=== PATIENT | female | born 1985 | race African-American/Black ===

== ENCOUNTER 2018-02-05 15:10 | Emergency (ER) | payer OTHER ==
[~2018-02-05] VITALS: Ht 165.1 cm; Wt 57.1 kg
[2018-02-05 15:26] VITALS: Ht 165.1 cm; Wt 57.1 kg
[2018-02-05 16:04] LABS: BASOPHIL % 0.7 % (0-2); PLATELET COUNT 250 x10^3mcL (130-400); RED CELL DISTRIBUTION WIDTH 13.6 % (11.5-14.5)
[2018-02-05 16:10] LABS: CALCIUM 9.1 mg/dL (8.5-10.1); CARBON DIOXIDE 28.3 mmol/L (21-32); CHLORIDE SERUM 102 mmol/L (98-107); CREATININE SERUM 0.8 mg/dL (0.6-1.0); GFR1 > 60 mL/min; GLUCOSE SERUM 97 mg/dL (74-106); POTASSIUM SERUM 3.7 mmol/L (3.5-5.1); SODIUM SERUM 137 mmol/L (136-145)
[2018-02-05 17:07] VITALS: BP 118/64
== END 2018-02-05 17:07 | disposition home or self-care (01) ==
LOC: ED 15:10
PROVIDERS: Emergency Medicine
DX: R42 Dizziness and giddiness (principal); R51 Headache
CPT/HCPCS: J1885

== ENCOUNTER 2018-02-12 22:46 | Emergency (ER) | payer OTHER ==
[~2018-02-12] VITALS: Ht 165.1 cm; Wt 56.7 kg
[2018-02-12 22:59] VITALS: Ht 165.1 cm; Wt 56.7 kg
[2018-02-13 04:31] LABS: BASOPHIL % 1.1 % (0-2); CALCIUM 9.2 mg/dL (8.5-10.1); CARBON DIOXIDE 27.3 mmol/L (21-32); CHLORIDE SERUM 101 mmol/L (98-107); CREATININE SERUM 0.8 mg/dL (0.6-1.0); GFR1 > 60 mL/min; GLUCOSE SERUM 81 mg/dL (74-106); PLATELET COUNT 272 x10^3mcL (130-400); RED CELL DISTRIBUTION WIDTH 14.1 % (11.5-14.5); SODIUM SERUM 137 mmol/L (136-145)
[2018-02-13 04:36] LABS: ALBUMIN 3.7 g/dL (3.4-5.0); ALKALINE PHOSPHATASE 47 U/L (46-116); ALT/SGPT 21 U/L (14-59); AST/SGOT 16 U/L (15-37); BILIRUBIN TOTAL 0.22 mg/dL (0.20-1.00); TOTAL PROTEIN, SERUM 8.7 g/dL (6.4-8.2)
[2018-02-13 07:14] VITALS: BP 120/65
== END 2018-02-13 07:14 | disposition home or self-care (01) ==
LOC: ED 22:46
PROVIDERS: Emergency Medicine Emergency Medical Services
DX: R53.1 Weakness (principal); R53.83 Other fatigue; R42 Dizziness and giddiness; R11.0 Nausea; R00.2 Palpitations
CPT/HCPCS: 36415; 85378; 86308